=== PATIENT | female | born 1995 | race African-American/Black ===

== ENCOUNTER 2024-01-04 02:48 | Outpatient (CLI) | payer OTHER, SELFPAY | END 2024-01-04 02:49 | disposition home or self-care (01) | LOC: AMB 01-21 03:34 | PROVIDERS: Visit Provider Family Medicine | DX: S09.93XA Unspecified injury of face, initial encounter (principal); Y04.2XXA Assault by strike against or bumped into by another person, initial encounter; Y92.10 Unspecified residential institution as the place of occurrence of the external cause | CPT/HCPCS: A0998 ==